=== PATIENT | male | born 1995 | race African-American/Black ===

== ENCOUNTER 2020-09-03 20:06 | Emergency (ER) | payer OTHER ==
[~2020-09-03] VITALS: Ht 182.9 cm; Wt 68.0 kg
[2020-09-03] MEDS ORDERED: HYDROCODONE/ACETAMINOPHEN 5/325MG TABLET PO ONE (20:45)
[2020-09-03] MEDS ORDERED: IBUPROFEN 600MG TABLET PO ONE (20:45)
[2020-09-03 22:10] VITALS: BP 136/88
== END 2020-09-03 22:20 ==
LOC: ER 20:06
DX: S82.202S Unspecified fracture of shaft of left tibia, sequela (principal); M79.605 Pain in left leg; R00.0 Tachycardia, unspecified; Z98.890 Other specified postprocedural states; Y08.89XS Assault by other specified means, sequela
CPT/HCPCS: 73590; 99283